=== PATIENT | male | born 1950 | race Caucasian/White ===

== ENCOUNTER 2019-01-06 13:18 | Inpatient (IN) | payer BC, MEDICARE ==
[2019-01-06] MEDS ORDERED: Heparin for STEMI(*) 5,000 UNITS/ML 1 ML VIAL IV ONE (13:29)
[2019-01-06] MEDS ORDERED: Ticagrelor* 90 MG TAB PO ONE (13:29)
--- NOTE | 2019-01-06 13:31 | ED ---
HPI Chest Pain - HPI Summary HPI Summary: A 68 y/o male brought in by ambulance with a chief complaint of thinking that he is "having a heart attack". He had intermittent CP starting last night, radiating down his left arm. Pain increased today with activity so he called hi STEMI alert called at 13:10 before EMS arrival at 13:16. EMS did not give the patient pain medication. Upon arrival he rated his pain as a 7/10 in severity. Pt was give ASA by EMS. Pt was not given nitro second to blood pressure 90 systolic. EMS states pt with some decresaed responsiveness initially, improved enroute. In the ED, pt rates pain 7/10. Denies sob. STEMI called in the field. Dr. Castillo, gaming surveillance observer, was at bedside evaluating patient at 13:20. The patient is a heavy smoker. Pt does not take any medications for eretile dysfunction. e reports taking medication for HLD and HTN. He notes being allergic to nickel. Patients medication reviewed this visit. - History of Current Complaint Chief Complaint: KCChestPain Hx Obtained From: Patient, Family/Environmental Services Tech, EMS Onset/Duration: Started Hours Ago, Still Present Timing: Constant, Lasting Hours Initial Severity: Moderate Current Severity: Moderate Pain Intensity: 7 Pain Scale Used: 0-10 Numeric Chest Pain Location: Diffuse Chest Pain Radiates: No Character: Other: - unable to describe Aggravating Factor(s): Nothing Alleviating Factor(s): Nothing Associated Signs and Symptoms: Positive: Chest Pain. Negative: Fever - Allergy/Home Medications Allergies/Adverse Reactions: Allergies Allergy/AdvReac Type Severity Reaction Status Date / Time nickel Allergy Unknown Verified 01/06/19 15:19 Reaction Details PMH/Surg Hx/FS Hx/Imm Hx Previously Healthy: Yes Endocrine/Hematology History: Denies: Hx Anticoagulant Therapy Cardiovascular History: Reports: Hx Hypercholesterolemia, Hx Hypertension Sensory History: Denies: Hx Deafness EENT History: Denies: Hx Deafness Infectious Disease History: No Infectious Disease History: Denies: Traveled Outside the [place] in Last 30 Days - Family History Known Family History: Positive: Non-Contributory - Social History Lives: With Family Smoking Status (MU): Heavy Every Day Tobacco Smoker Review of Systems Constitutional: Negative Negative: Fever Positive: Chest Pain All Other Systems Reviewed And Are Negative: Yes Physical Exam - Summary Physical Exam Summary: Vital Signs Reviewed: Yes A+Ox3, discomfort Eyes: Conjunctiva Clear, LUZ. EOM intact and full ENT: [place] TM x 2 clear, mmoist, uvula midline, no exudate, no erythema Neck: Positive: Supple Respiratory: Positive: No respiratory distress, No accessory muscle use + CTA throughout no w/r Cardiovascular: RRR nl s1, s2 no m/r CBT <2 sec abd soft + BS nt/nd no guarding, no distension Musculoskeletal Exam: CALERO without difficulty , normal tone Neurological: Positive: Alert, + sensation throughout Psychological: Positive: Normal Response To Family Skin: Positive: no rash, no ecchymosis Triage Information Reviewed: Yes Vital Signs On Initial Exam: Initial Vitals Temp Pulse Resp BP Pulse Ox 96.5 F 74 13 164/45 100 01/06/19 13:20 01/06/19 13:20 01/06/19 13:20 01/06/19 13:20 01/06/19 13:20 Diagnostics - Vital Signs Vital Signs Temp Pulse Resp BP Pulse Ox 01/06/19 13:20 96.5 F 74 13 164/45 100 - Laboratory Result Diagrams: 01/06/19 13:26 01/06/19 13:26 Lab Statement: Any lab studies that have been ordered have been reviewed, and results considered in the medical decision making process. Chest Pain Course/Dx - Course Course Of Treatment: Pt presents to with progressive C P x 24 - increased today - with with inferior wall NM. Pt given ASA SENIOR ANALYSIS SPECIALIST. Pt with BP > 150 in ED - will give nitroglycerin. Dr. Castillo at bedside - wlill give heparin and Berlinta. Pt to supervisor laboratory. escorted to bedside - updated - Diagnoses Provider Diagnoses: STEMI (ST elevation myocardial infarction) During the Visit The Following Alert/Code Occurred: STEMI - Provider Notifications Discussed Care Of Patient With: Juan Diego Castillo Time Discussed With Above Provider: 13:27 Instructed by Provider To: Admit As Inpatient - Dr. Castillo was at bedside evaluating patient at 13:20 Discharge - Sign-Out/Discharge Documenting (check all that apply): Patient Departure - Discharge Plan Condition: Critical Disposition: ADMITTED TO [facility] - Billing Disposition and Condition Condition: CRITICAL Disposition: Admitted to [facility] - Attestation Statements Document Initiated by Scribe: Yes Documenting Scribe: Minor Zafar Provider For Whom Scribe is Documenting (Include Credential): Laura Forbes MD Scribe Attestation: I, Minor Zafar, scribed for Laura Forbes MD on 01/06/19 at 1554. Scribe Documentation Reviewed: Yes Provider Attestation: The documentation as recorded by the scribe, Minor Zafar accurately reflects the service I personally performed and the decisions made by me, Laura Forbes MD Status of Scribe Document: Viewed
[2019-01-06] MEDS ORDERED: Nitroglycerin TAB 0.4 MG* 0.4 MG TAB SL PRN ×2 (13:33→15:04)
[2019-01-06] MEDS ORDERED: fentaNYL* 50 MCG/ML 2 ML VIAL (100 MCG VIAL) ONE (13:38)
[2019-01-06] MEDS ORDERED: Midazolam* 1 MG/ML 5 ML VIAL (5 MG) ONE (13:38)
[2019-01-06 13:49] LABS: ABS Basophils 0 10^3/ul (0-0.2); ABS Eosinophils 0.2 10^3/ul (0-0.6); ABS Lymphocytes 1.5 10^3/ul (1.0-4.8); ABS Monocytes 0.8 10^3/ul (0-0.8); ABS Neutrophils 6.2 10^3/ul (1.5-7.7); ABS Nucleated RBC 0 10^3/ul; Eosinophil % 1.9 %; Hematocrit 46 % (36-46); Hemoglobin 15.7 g/dL (14.0-18.0); Lymphocyte % 17.6 %; Mean Corpuscular HGB Conc 34 g/dL (31-36); Mean Corpuscular Hemoglobin 31 pg (27-31); Mean Corpuscular Volume 92 fL (80-94); Mean Platelet Volume 8.6 fL (7.4-10.4); Nucleated Red Blood Cells % 0; Platelet Count 195 10^3/uL (150-450); Red Cell Distribution Width 13 % (10.5-15); White Blood Count 8.7 10^3/uL (3.5-10.8)
[2019-01-06 13:56] LABS: Activated Partial Thrombo Time 27.4 seconds (26.0-36.3); INR 1.06 (0.77-1.02)
[2019-01-06 14:07] LABS: ALT 22 U/L (7-52); AST 22 U/L (13-39); Albumin 4.4 g/dL (3.2-5.2); Albumin/Globulin Ratio 2.1 (1-3); Alkaline Phosphatase 68 U/L (34-104); Anion Gap 6 mmol/L (2-11); BUN/Creatinine Ratio 18.1 (8-20); Blood Urea Nitrogen 19 mg/dL (6-24); CO2 Carbon Dioxide 33 mmol/L (22-32); Calcium 9.2 mg/dL (8.6-10.3); Chloride 100 mmol/L (101-111); Creatine Kinase 116 U/L (10-223); EGFR African American 85.5 (>60); EGFR Non-African American 70.7 (>60); Globulin 2.1 g/dL (2-4); Glucose 92 mg/dL (70-100); LDL Cholesterol Direct 105 mg/dL; Potassium 3.4 mmol/L (3.5-5.0); Sodium 139 mmol/L (135-145); Total Protein 6.5 g/dL (6.4-8.9)
[2019-01-06] MEDS ORDERED: nitroGLYCERIN DRIP* 0 MCG/0 ML BTL ONE (14:09)
[2019-01-06 14:15] LABS: Troponin I 0.24 ng/mL (<0.04)
[2019-01-06] MEDS ORDERED: KCL 10 MEQ/50 ML IVPREMIX* 10 MEQ/50 ML BAG ONE (14:15)
[2019-01-06] MEDS ORDERED: Atropine SYRINGE* 0.1 MG/ML 10 ML SYRINGE (1 MG) ONE (14:42)
[2019-01-06] MEDS ORDERED: Ondansetron INJ* 2 MG/ML VIAL IV PRN (15:04)
[2019-01-06] MEDS ORDERED: Acetaminophen TAB* 325 MG PO PRN (15:04)
[2019-01-06] MEDS ORDERED: NS 0.9% 1000 ML** 1,000 ML IV SCH (15:15)
[2019-01-06 15:47] LABS: CKMB ng/mL 256.3 ng/mL (0.6-6.3); Troponin I 14.39 ng/mL (<0.04)
[2019-01-06 15:48] LABS: Creatine Kinase 1707 U/L (10-223)
[2019-01-06 15:49] LABS: Cholesterol 156 mg/dL; HDL Cholesterol 36.5 mg/dL; LDL Cholesterol 88 mg/dL; Triglycerides 160 mg/dL
[2019-01-06] MEDS: Metoprolol Tartrate TAB* 25 MG PO SCH ×2 (16:40→23:57)
[2019-01-06] MEDS: Nicotine PATCH 21 MG/24 HR* PATCH TRANSDERM SCH (16:58)
--- NOTE | 2019-01-06 19:05 | HP ---
CC: Mary Ashford PA-C * HISTORY AND PHYSICAL: DATE OF ADMISSION: 01/06/19 PRIMARY: Mary Ashford PA-C at [facility], [address] [place] [address], [address] [place] [address]. HISTORY OF PRESENT ILLNESS: A 68-year-old male visiting from [place] presenting to the ER with in the field acute inferior ST elevation infarct. He was brought to the manager laboratory. In retrospect, he has had low energy for a number of months. He has a history of what describes as heartburn since this winter. Two days ago, he had that same heartburn sensation lasting 2 to 3 hours before it resolved. Yesterday, he felt well, today at around 10:30 in the morning, he had a recurrence of severe heartburn, EMS was called, in the field EKG at 12:49 demonstrated sinus rhythm with a first-degree A-V block, and acute inferior wall ST elevation infarct with ST elevation in II, III, aVF, with reciprocal ST depression in I, aVL, V1 through V4. In the emergency room, he received 2 sublingual nitroglycerin, IV heparin bolus, as well as Brilinta 180 mg p.o. loading dose. Presenting blood pressure was high at 164/45 with a heart rate in the 70s. His chest pain improved, but did not resolve with sublingual nitro. He denies any history of heart failure symptoms, palpitations, or syncope. He is a pack and a half per day smoker, he has tried stopping several times in the past. He had a bad experience with Chantix with mood issues, he has tried nicotine patches in the past, but according to his , he continues to smoking well wearing the patches. He states he "has no will power." He also has a NICKEL allergy, manifest as a cutaneous rash with exposure to metals. I reviewed with them that stents do have trace nickel, but that there are no reported cases of adverse events with stenting in pts with Ni allergy, and that benefit of treating STEMI outweighs any theoretical risk. We do have an office record from [facility] from 01/20/18, which details his past medical history, his medications, etc. Of note, he has had elevated blood sugars with upper limit of normal hemoglobin A1c consistent with prediabetes. He also takes diclofenac as well as Aleve for musculoskeletal discomfort. His lipid profile from that visit is listed as cholesterol 156, triglycerides 113, LDL 95, HDL 38, VLDL 23, on Zocor 20. Per history, he had intolerable leg cramping with Lipitor. To their knowledge, he has never been on Crestor. PAST MEDICAL HISTORY: 1. Obstructive sleep apnea for which he is not using CPAP by choice. 2. Hypertension, medically managed. 3. Chronic hypomagnesemia and hypokalemia, likely related to his hydrochlorothiazide. 4. Hyperlipidemia. 5. GERD, treated with Zantac 150 one to two times per day. MEDICATIONS: Prehospital medications: 1. Aleve p.r.n. 2. Lofibra 54 mg daily. 3. Micro-K 10 mEq ER 2 a day. 4. Hydrochlorothiazide 25 mg daily. 5. Prinivil 5 mg daily. 6. Zocor 20 mg daily. 7. Diclofenac p.r.n. 8. Zantac as above. ALLERGIES: He is allergic to NICKEL. SOCIAL HISTORY: He is . He is a one and half pack per day smoker, has had difficulty quitting. FAMILY HISTORY: Negative for premature coronary artery disease. REVIEW OF SYSTEMS: General: No weight loss. No fever. He is fairly sedentary. UNIFORM MAKER: No history of TIA or CVA. GI: No peptic ulcer disease or bleeding. Circulatory: No claudication. Remainder all negative. PHYSICAL EXAMINATION VITAL SIGNS: ER BP 164/45, heart rate 74. He was in moderate distress with a chest pain. He was not profusely diaphoretic. HEENT: Normal without xanthelasma, scleral injection, or jaundice. EOMs normal , cranial nerves intact. Tongue midline. NECK: JVP and carotids normal. No bruits. No thyromegaly. Neck supple. LUNGS: Clear to percussion, auscultation. CARDIAC: [place] and RV not palpable, normal heart sounds, regular rhythm, no gallop, murmur, or rub. ABDOMEN: Soft, nontender, aorta and liver not palpable, no bruits. Femoral pulses 2+. No bruits. EXTREMITIES: Radial pulses 2+. Pedal pulses 2+. No cyanosis, clubbing, or edema. SKIN: Warm and perfused. DIAGNOSTIC STUDIES/LAB DATA: EKG at [address] inferior wall ST elevation infarct with now Q waves in II, III and aVF as well as the reciprocal ST depression as before, and again with first-degree A-V block, SD 0.36. His CBC is normal, coags are normal, chemistry panel notable for low potassium of 3.4, CO2 of 33 with chloride 100. His first troponin was 0.24. LFTs normal , cholesterol 156 with triglycerides 160, LDL 88, directly measured LDL was 105 , HDL 36.5. IMPRESSION: 1. Acute inferior wall ST elevation infarct. He underwent emergent revascularization. We will discuss with him secondary risk factor modification measures. 2. Hypertension. Per history, he has been fairly well controlled, however, he has chronic hypokalemia and hypomagnesemia in spite of supplementation, my suggestion to family is to stop his hydrochlorothiazide and increase his CELINA inhibitor, particularly since we are adding a beta-kae for post infarct cardioprotection. In the unlikely event that he has hypokalemia and hypomagnesemia off diuretics, this would have to be evaluated independently. 3. Hyperlipidemia. He is on Zocor 20 with an LDL not at target. I will recommend switching him to Crestor for a trial. 4. Obstructive sleep apnea, apparently has declined treatment. 5. Prediabetes. We will review secondary prevention measures including weight loss and exercise, etc. [id number]/[facility] #: [id number] [facility]
[2019-01-06] MEDS: Potassium Chlor TAB* 10 MEQ TAB.ER PO SCH (20:38)
[2019-01-06] MEDS: Ticagrelor* 90 MG TAB PO SCH (20:39)
[2019-01-06] MEDS: Nicotine Patch Removal NOTE PATCH OFF SCH (20:41)
[2019-01-06 21:24] LABS: CKMB ng/mL > 304.0 ng/mL (0.6-6.3); Troponin I > 79.00 ng/mL (<0.04)
[2019-01-06 21:43] LABS: Creatine Kinase 3073 U/L (10-223)
[2019-01-07 04:24] LABS: Creatine Kinase 1939 U/L (10-223)
[2019-01-07 04:41] LABS: CKMB ng/mL > 304.0 ng/mL (0.6-6.3)
[2019-01-07 04:43] LABS: Troponin I > 74.00 ng/mL (<0.04)
[2019-01-07 05:57] LABS: Albumin 3.9 g/dL (3.2-5.2); Albumin/Globulin Ratio 1.9 (1-3); BUN/Creatinine Ratio 23.8 (8-20); Calcium 8.9 mg/dL (8.6-10.3); EGFR African American 110.6 (>60); EGFR Non-African American 91.4 (>60); Globulin 2.1 g/dL (2-4); Potassium 3.6 mmol/L (3.5-5.0); Total Bilirubin 0.6 mg/dL (0.2-1.0)
[2019-01-07] MEDS: Potassium Chlor TAB* 10 MEQ TAB.ER PO SCH ×2 (09:10→20:25)
[2019-01-07] MEDS: Aspirin 81 mg CHEW TAB* 81 MG TAB.CHEW PO SCH (09:10)
[2019-01-07] MEDS: Lisinopril TAB* 5 MG PO SCH (09:10)
[2019-01-07] MEDS: Metoprolol Tartrate TAB* 25 MG PO SCH (09:10)
[2019-01-07] MEDS: Ticagrelor* 90 MG TAB PO SCH ×2 (09:10→20:25)
[2019-01-07] MEDS: Nicotine PATCH 21 MG/24 HR* PATCH TRANSDERM SCH (09:11)
[2019-01-07] MEDS ORDERED: Potassium Chlor TAB* 20 MEQ TAB.ER PO ONE (09:26)
--- NOTE | 2019-01-07 09:52 | PN ---
<AnnelNiesha - Last Filed: 01/07/19 10:04> Subjective Date of Service: 01/07/19 - s/p inferior STEMI, JHONNY/RCA. Interval History: No events last night. Patient resting in bed offers no complaints. RN stated he has been having venticular ectopy with 2 episodes of NSVT this morning while resting and he has not been symptomatic. No denies chest angela, left arm pain, sob , dizziness, palpitations. Medications Active Medications: Acetaminophen (Tylenol Tab*) 650 mg PO Q4H PRN PRN Reason: HEADACHE/PAIN Aspirin (Aspirin 81 Mg Chew Tab*) 81 mg PO DAILY [facility] Last Admin: 01/07/19 09:10 Dose: 81 mg Fenofibrate (Tricor) 54 mg PO DAILY [facility] Last Admin: 01/07/19 09:11 Dose: 54 mg Lisinopril (Prinivil Tab*) 5 mg PO DAILY [facility] Last Admin: 01/07/19 09:10 Dose: 5 mg Metoprolol Tartrate (Lopressor Tab*) 25 mg PO Q8H [facility] Last Admin: 01/07/19 09:10 Dose: 25 mg Nicotine (Nicotine Patch 21 Mg/24 Hr*) 1 patch TRANSDERM DAILY [facility] Last Admin: 01/07/19 09:11 Dose: 1 patch Nitroglycerin (Nitroglycerin Tab 0.4 Mg*) 0.4 mg SL Q5M PRN PRN Reason: ANGINA Ondansetron HCl (Zofran Inj*) 4 mg IV Q4H PRN PRN Reason: NAUSEA Pharmacy Profile Note (Nicotine Patch Removal Note*) 1 note PATCH OFF 2100 [facility] Last Admin: 01/06/19 20:41 Dose: 1 note Potassium Chloride (Klor Con Er Tab*) 10 meq PO BID [facility] Last Admin: 01/07/19 09:10 Dose: 10 meq Ticagrelor (Brilinta*) 90 mg PO BID [facility] Last Admin: 01/07/19 09:10 Dose: 90 mg Objective Vital Signs: Temp Pulse Resp BP Pulse Ox 98.4 F 64 17 122/83 92 01/07/19 08:00 01/07/19 09:01 01/07/19 09:01 01/07/19 05:48 01/07/19 09:01 Oxygen Devices in Use Now: None Appearance: Lying in bed, A+O x3, cooperative with exam. Ears/Nose/Mouth/Throat: NL Teeth, Lips, Gums, Mucous Membranes Moist Neck: NL Appearance and Movements; NL JVP Respiratory: Symmetrical Chest Expansion and Respiratory Effort, Clear to Auscultation Cardiovascular: NL Sounds; No Murmurs; No JVD, No Edema, - - right radial access site is intact, no hematoma, strong bounding pulse, non tender to palpation. Extremities: No Edema Skin: No Rash or Ulcers Neurological: Alert and Oriented x 3 Lines/Tubes/Other Access: Clean, Dry and Intact Peripheral IV Laboratory Results: 01/06/19 13:26 01/07/19 05:14 INR (Anticoag Therapy) 1.06 (0.77-1.02) H 01/06/19 13:26 APTT 28.5 seconds (26.0-36.3) 01/07/19 05:14 Total Bilirubin 0.60 mg/dL (0.2-1.0) 01/07/19 05:14 AST 235 U/L (13-39) H 01/07/19 05:14 ALT 58 U/L (7-52) H 01/07/19 05:14 Alkaline Phosphatase 60 U/L (34-104) 01/07/19 05:14 CK-MB (CK-2) > 304.0 ng/mL (0.6-6.3) H 01/07/19 03:08 B-Natriuretic Peptide 31 pg/mL (<=100) 01/06/19 13:26 Total Protein 6.0 g/dL (6.4-8.9) L 01/07/19 05:14 Albumin 3.9 g/dL (3.2-5.2) 01/07/19 05:14 Globulin 2.1 g/dL (2-4) 01/07/19 05:14 Albumin/Globulin Ratio 1.9 (1-3) 01/07/19 05:14 Triglycerides 160 mg/dL 01/06/19 13:26 Cholesterol 156 mg/dL 01/06/19 13:26 LDL Cholesterol 88 mg/dL 01/06/19 13:26 HDL Cholesterol 36.5 mg/dL 01/06/19 13:26 01/06/19 01/06/19 01/06/19 13:26 15:20 20:54 Troponin I 0.24 H* 14.39 H* > 79.00 H* 01/07/19 03:08 Troponin I > 74.00 H* Laboratory Results - last 24 hr 01/06/19 01/06/19 01/06/19 13:26 13:26 13:26 WBC 8.7 RBC 5.00 Hgb 15.7 Hct 46 MCV 92 MCH 31 MCHC 34 RDW 13 Plt Count 195 MPV 8.6 Neut % (Auto) 71.3 Lymph % (Auto) 17.6 [place] % (Auto) 8.8 Eos % (Auto) 1.9 Baso % (Auto) 0.4 Absolute Neuts (auto) 6.2 Absolute Lymphs (auto) 1.5 Absolute Monos (auto) 0.8 Absolute Eos (auto) 0.2 Absolute Basos (auto) 0 Absolute Nucleated RBC 0 Nucleated RBC % 0 INR (Anticoag Therapy) 1.06 H APTT 27.4 POC Activ Clotting Time Sodium 139 Potassium 3.4 L Chloride 100 L Carbon Dioxide 33 H Anion Gap 6 BUN 19 Creatinine 1.05 Est GFR ( Amer) 85.5 Est GFR (Non-Af Amer) 70.7 BUN/Creatinine Ratio 18.1 Glucose 92 Hemoglobin A1c Lactic Acid Calcium 9.2 Total Bilirubin 0.50 AST 22 ALT 22 Alkaline Phosphatase 68 Total Creatine Kinase 116 CK-MB (CK-2) 5.0 Troponin I 0.24 H* B-Natriuretic Peptide Total Protein 6.5 Albumin 4.4 Globulin 2.1 Albumin/Globulin Ratio 2.1 Triglycerides 160 Cholesterol 156 LDL Cholesterol 88 LDL Cholesterol Direct 105 HDL Cholesterol 36.5 01/06/19 01/06/19 01/06/19 13:26 13:26 13:26 WBC RBC Hgb Hct MCV MCH MCHC RDW Plt Count MPV Neut % (Auto) Lymph % (Auto) [place] % (Auto) Eos % (Auto) Baso % (Auto) Absolute Neuts (auto) Absolute Lymphs (auto) Absolute Monos (auto) Absolute Eos (auto) Absolute Basos (auto) Absolute Nucleated RBC Nucleated RBC % INR (Anticoag Therapy) APTT POC Activ Clotting Time Sodium Potassium Chloride Carbon Dioxide Anion Gap BUN Creatinine Est GFR ( Amer) Est GFR (Non-Af Amer) BUN/Creatinine Ratio Glucose Hemoglobin A1c 5.7 H Lactic Acid 1.3 Calcium Total Bilirubin AST ALT Alkaline Phosphatase Total Creatine Kinase CK-MB (CK-2) Troponin I B-Natriuretic Peptide 31 Total Protein Albumin Globulin Albumin/Globulin Ratio Triglycerides Cholesterol LDL Cholesterol LDL Cholesterol Direct HDL Cholesterol 01/06/19 01/06/19 01/06/19 13:53 14:09 14:19 WBC RBC Hgb Hct MCV MCH MCHC RDW Plt Count MPV Neut % (Auto) Lymph % (Auto) [place] % (Auto) Eos % (Auto) Baso % (Auto) Absolute Neuts (auto) Absolute Lymphs (auto) Absolute Monos (auto) Absolute Eos (auto) Absolute Basos (auto) Absolute Nucleated RBC Nucleated RBC % INR (Anticoag Therapy) APTT POC Activ Clotting Time 225 217 192 Sodium Potassium Chloride Carbon Dioxide Anion Gap BUN Creatinine Est GFR ( Amer) Est GFR (Non-Af Amer) BUN/Creatinine Ratio Glucose Hemoglobin A1c Lactic Acid Calcium Total Bilirubin AST ALT Alkaline Phosphatase Total Creatine Kinase CK-MB (CK-2) Troponin I B-Natriuretic Peptide Total Protein Albumin Globulin Albumin/Globulin Ratio Triglycerides Cholesterol LDL Cholesterol LDL Cholesterol Direct HDL Cholesterol 01/06/19 01/06/19 01/07/19 15:20 20:54 03:08 WBC RBC Hgb Hct MCV MCH MCHC RDW Plt Count MPV Neut % (Auto) Lymph % (Auto) [place] % (Auto) Eos % (Auto) Baso % (Auto) Absolute Neuts (auto) Absolute Lymphs (auto) Absolute Monos (auto) Absolute Eos (auto) Absolute Basos (auto) Absolute Nucleated RBC Nucleated RBC % INR (Anticoag Therapy) APTT POC Activ Clotting Time Sodium Potassium Chloride Carbon Dioxide Anion Gap BUN Creatinine Est GFR ( Amer) Est GFR (Non-Af Amer) BUN/Creatinine Ratio Glucose Hemoglobin A1c Lactic Acid Calcium Total Bilirubin AST ALT Alkaline Phosphatase Total Creatine Kinase 1707 H 3073 H 1939 H CK-MB (CK-2) 256.3 H > 304.0 H > 304.0 H Troponin I 14.39 H* > 79.00 H* > 74.00 H* B-Natriuretic Peptide Total Protein Albumin Globulin Albumin/Globulin Ratio Triglycerides Cholesterol LDL Cholesterol LDL Cholesterol Direct HDL Cholesterol 01/07/19 01/07/19 05:14 05:14 WBC RBC Hgb Hct MCV MCH MCHC RDW Plt Count MPV Neut % (Auto) Lymph % (Auto) [place] % (Auto) Eos % (Auto) Baso % (Auto) Absolute Neuts (auto) Absolute Lymphs (auto) Absolute Monos (auto) Absolute Eos (auto) Absolute Basos (auto) Absolute Nucleated RBC Nucleated RBC % INR (Anticoag Therapy) APTT 28.5 POC Activ Clotting Time Sodium 141 Potassium 3.6 Chloride 107 Carbon Dioxide 28 Anion Gap 6 BUN 20 Creatinine 0.84 Est GFR ( Amer) 110.6 Est GFR (Non-Af Amer) 91.4 BUN/Creatinine Ratio 23.8 H Glucose 112 H Hemoglobin A1c Lactic Acid Calcium 8.9 Total Bilirubin 0.60 AST 235 H ALT 58 H Alkaline Phosphatase 60 Total Creatine Kinase CK-MB (CK-2) Troponin I B-Natriuretic Peptide Total Protein 6.0 L Albumin 3.9 Globulin 2.1 Albumin/Globulin Ratio 1.9 Triglycerides Cholesterol LDL Cholesterol LDL Cholesterol Direct HDL Cholesterol Diagnostic Imaging: ECHO pending. [facility] 01/06/2019 please refer to report in paper chart. EKG Data: EKG 01/07/2019; Sinus bradycardia rate 59 with first degree AVB and inferiror Q waves. Telemetry reviewed. Sinus bradycardia rate 50-60's with frequent ventricular ectopy and NSVT. 9 beat count ( monomorphic) at 0932 Assessment/Plan #1 Inferior STEMI s/p JHONNY to mid RCA 01/06/2019. On ASA 81/day, Brilinta 90mg PO BID and high intensity statin therapy. No recurrent symptoms since PCI. He has known residual 60% proximal LAD, Diag 1 80%, PDA 80%, PL 60%. LVEF 55% on LV gram. Troponin peaked at > 79 on 01/06/2019. Given ventricular ectopy I would like to start low dose Bblocker but cautiously given relative bradycardia. He' ll need eventual stress test in outpatient follow up #2 Ventricular ectopy; Plan is to staup titrate Lopressor. Will replace K+. He is asympotmatic. Will check echo. #3 h/o HTN; BP controlled on current regimen. #4 h/o HLD. Goal LDL < 70. LDL this admit. 88. On high intensity statin therapy. #5 Disposition pending course. Patient full code. <Juan Diego Castillo T - Last Filed: 01/07/19 12:14> Medications Active Medications: Acetaminophen (Tylenol Tab*) 650 mg PO Q4H PRN PRN Reason: HEADACHE/PAIN Aspirin (Aspirin 81 Mg Chew Tab*) 81 mg PO DAILY [facility] Last Admin: 01/07/19 09:10 Dose: 81 mg Fenofibrate (Tricor) 54 mg PO DAILY [facility] Last Admin: 01/07/19 09:11 Dose: 54 mg Lisinopril (Prinivil Tab*) 5 mg PO DAILY [facility] Last Admin: 01/07/19 09:10 Dose: 5 mg Metoprolol Tartrate (Lopressor Tab*) 50 mg PO Q12HR [facility] Nicotine (Nicotine Patch 21 Mg/24 Hr*) 1 patch TRANSDERM DAILY [facility] Last Admin: 01/07/19 09:11 Dose: 1 patch Nitroglycerin (Nitroglycerin Tab 0.4 Mg*) 0.4 mg SL Q5M PRN PRN Reason: ANGINA Ondansetron HCl (Zofran Inj*) 4 mg IV Q4H PRN PRN Reason: NAUSEA Pharmacy Profile Note (Nicotine Patch Removal Note*) 1 note PATCH OFF 2100 [facility] Last Admin: 01/06/19 20:41 Dose: 1 note Potassium Chloride (Klor Con Er Tab*) 10 meq PO BID [facility] Last Admin: 01/07/19 09:10 Dose: 10 meq Ticagrelor (Brilinta*) 90 mg PO BID [facility] Last Admin: 01/07/19 09:10 Dose: 90 mg Objective Vital Signs: Temp Pulse Resp BP Pulse Ox 98.4 F 64 17 122/83 92 01/07/19 08:00 01/07/19 09:01 01/07/19 09:01 01/07/19 05:48 01/07/19 09:01 Laboratory Results: 01/06/19 13:26 01/07/19 05:14 INR (Anticoag Therapy) 1.06 (0.77-1.02) H 01/06/19 13:26 APTT 28.5 seconds (26.0-36.3) 01/07/19 05:14 Total Bilirubin 0.60 mg/dL (0.2-1.0) 01/07/19 05:14 AST 235 U/L (13-39) H 01/07/19 05:14 ALT 58 U/L (7-52) H 01/07/19 05:14 Alkaline Phosphatase 60 U/L (34-104) 01/07/19 05:14 CK-MB (CK-2) > 304.0 ng/mL (0.6-6.3) H 01/07/19 03:08 B-Natriuretic Peptide 31 pg/mL (<=100) 01/06/19 13:26 Total Protein 6.0 g/dL (6.4-8.9) L 01/07/19 05:14 Albumin 3.9 g/dL (3.2-5.2) 01/07/19 05:14 Globulin 2.1 g/dL (2-4) 01/07/19 05:14 Albumin/Globulin Ratio 1.9 (1-3) 01/07/19 05:14 Triglycerides 160 mg/dL 01/06/19 13:26 Cholesterol 156 mg/dL 01/06/19 13:26 LDL Cholesterol 88 mg/dL 01/06/19 13:26 HDL Cholesterol 36.5 mg/dL 01/06/19 13:26 01/06/19 01/06/19 01/06/19 13:26 15:20 20:54 Troponin I 0.24 H* 14.39 H* > 79.00 H* 01/07/19 03:08 Troponin I > 74.00 H* Assessment/Plan 2 episodes of AIVR this Am. To tele in Pm if no further NSVT and tolerates increase in beta kae. R RA patent by jon Rubio.
[2019-01-07] MEDS ORDERED: Metoprolol Tartrate TAB* 25 MG PO ONE (10:10)
[2019-01-07 12:33] LABS: Magnesium 1.9 mg/dL (1.9-2.7)
--- NOTE | 2019-01-07 15:05 | ECHO ---
Patient: ROCIO MENON [facility] Rec#: [id number] : 1950 Date: 01/07/2019 Age: 68y Height: 183 cm / 72.0 in Weight: 91 kg / 200.6 lbs Sex: M BSA: 2.13 Room#: ICU 8 Admit Date#: 01/06/2019 Type: Inpatient Referring: FRANCO HIGH Reading: Kirk Parekh DO Business Objects Architect: Carol BolañosRDCS,RDMS Transthoracic Echocardiogram Indication: SD BP: 122/83 HR: 72 Rhythm: NSR Findings History: S/P STEMI and PCI. HTN, HLD, KADIE, smoker. Technical Comments: The study quality is fair. Left Ventricle: The left ventricular chamber size is normal. Mild concentric left ventricular hypertrophy is observed. Left ventricular systolic function is at the lower limits of normal. The estimated ejection fraction is 50-55%. There is no consistent Doppler evidence of clinically significant diastolic dysfunction. The basal inferolateral, basal inferior, mid inferolateral, mid inferior, and apical inferior wall segments are hypokinetic (score 2). Overall wallmotion score index is 2.00 Left Atrium: The left atrial chamber size is normal. Right Ventricle: The right ventricular chamber size and systolic function are within normal limits. The right ventricular global systolic function is mildly reduced. Right Atrium: The right atrial cavity size is normal. Aortic Valve: The aortic valve is trileaflet. Systolic excursion of the aortic valve is normal. There is no evidence of aortic regurgitation. There is no evidence of aortic stenosis. Mitral Valve: The mitral valve leaflets appear normal. There is a trace of mitral regurgitation. There is no evidence of mitral stenosis. Tricuspid Valve: The tricuspid valve leaflets are normal. There is no evidence of tricuspid valve regurgitation. Unable to estimate the right ventricular systolic pressure. Pulmonic Valve: The pulmonic valve appears normal. There is no evidence of pulmonic regurgitation. Pericardium: There is no significant pericardial effusion. Aorta: The aortic root appears normal. There is no dilatation of the aortic arch. Pulmonary Artery: The main pulmonary artery is not well visualized. Venous: The inferior vena cava is dilated. There is a greater than 50% respiratory change in the inferior vena cava dimension. Conclusions The left ventricular chamber size is normal. Mild concentric left ventricular hypertrophy is observed. Left ventricular systolic function is at the lower limits of normal. The estimated ejection fraction is 50-55% with inferior/inferolateral wall hypokinesis The left atrial chamber size is normal. The right ventricular chamber size and systolic function are within normal limits. The right ventricular global systolic function is mildly reduced. No significant valvular abnormalities noted None prior for comparison at time of interpretation Measurements Name Value Normal Range RVIDd (AP) 2D 2.5 cm (0.9 - 2.6) RVDdMajor (2D) 3.6 cm (2.2 - 4.4) RAd ISD 4CH 4.5 cm (3.4 - 4.9) RA (A4C)W 4.1 cm (2.9 - 4.6) IVSd (2D) 1.3 cm (0.6 - 1) LVPWd (2D) 1.1 cm (0.6 - 1) LVIDd (2D) 4.5 cm (3.6 - 5.4) LVIDs (2D) 3.6 cm - LV FS 21 % - Aortic Annulus 2 cm (1.4 - 2.6) Ao root diameter (2D) 3 cm (2.1 - 3.5) Ascending Ao 3.1 cm (2.1 - 3.4) Aortic arch 2.7 cm (1.8 - 3.4) LA dimension (AP) 2D 4.4 cm (2.3 - 3.8) LAd ISD 4CH 5.8 cm (2.9 - 5.3) LA ISD 4CH W 4.3 cm (2.5 - 4.5) Name Value Normal Range LA ESV BP (A/L) index 28 ml/m2 - Name Value Normal Range MV E-wave Vmax 0.7 m/sec - MV deceleration time 132 msec - MV A-wave Vmax 0.5 m/sec - MV E:A ratio 1.4 ratio - LV septal e' Vmax 0.06 m/sec - LV lateral e' Vmax 0.06 m/sec - LV E:e' septal ratio 11 ratio - LV E:e' lateral ratio 11 ratio - Name Value Normal Range AV Vmax 1 m/sec - AV VTI 20 cm - AV peak gradient 4 mmHg - AV mean gradient 2 mmHg - LVOT Vmax 0.8 m/sec - LVOT VTI 18 cm - LVOT peak gradient 2.6 mmHg - LVOT mean gradient 1 mmHg - LEI Vmax 0.5 m/sec - Name Value Normal Range RAP 8 mmHg - IVC diameter 2.2 cm - Name Value Normal Range PV Vmax 0.5 m/sec - PV peak gradient 1 mmHg - Wallmotion BAS Not Seen BA Not Seen BAL Not Seen OLGA Hypokinetic BI Hypokinetic BIS Not Seen MAS Not Seen MA Not Seen MAL Not Seen MIL Hypokinetic SD Hypokinetic MIS Not Seen Not Seen AA Not Seen AL Not Seen AI Hypokinetic APEX Not Seen
[2019-01-07] MEDS: Ascorbic Acid TAB* 500 MG PO SCH (16:08)
[2019-01-07] MEDS: Metoprolol Tartrate TAB* 50 mg PO SCH (20:24)
[2019-01-07] MEDS: Nicotine Patch Removal NOTE PATCH OFF SCH (20:28)
--- NOTE | 2019-01-07 20:58 | CATH ---
CC: Mary Ashford PA-C, [facility], [address] [place] [address], [address], [place], [place] [address] * STENT REPORT: DATE OF PROCEDURE: 01/06/19 - ROOM #443 PRIMARY CARE PHYSICIAN: Mary Ashford PA-C PROCEDURES: 1. Right radial artery access. 2. Left heart catheterization, left ventriculography. 3. Stent placement, RCA 3.0 x 20 mm Synergy drug-eluting stent, postdilated with 3.5 x 20 NC. HISTORY: A 68-year-old smoker with hypertension, hyperlipidemia and prediabetes , presenting with an acute inferior wall ST-elevation infarct in the field. Confirmed on EKG in the ER. He underwent catheterization. PROCEDURE ACCESS: Right radial artery sheath 6F slender. MEDICATIONS: 1. Subcu lidocaine. 2. IV Versed. 3. IV fentanyl. 4. Radial cocktail with nitroglycerin 300 mcg, verapamil 3 mg. 5. Heparin 10,000 units IV. 6. Brilinta 180 mg p.o. DIAGNOSTIC CATHETERS: 5F TIG4, 5F SUKUMAR, 5F pigtail. GUIDING CATHETER: RCA 6FR4, wire 14 BMW used to deploy a 3 x 20 Synergy drug- eluting stent in the mid RCA, as it was undersized, it was then postdilated with a 3.5 x 20 NC balloon 20 atmospheres 75 seconds. Of note, in spite of additional doses of heparin for a total of 10,000 units, his ACT fell, probably due to a technical error. Post revascularization, LV gram was performed. HEMODYNAMICS: Initial AO 137/67. Post revascularization, LV 100/17-27, no aortic valve gradient on pullback. ANGIOGRAPHY: Left main. The left main is large, long, has no stenosis. LAD. The LAD is moderate to large, extends to the apex, has a very small first diagonal branch which has proximal moderate stenosis and then is occluded, the tip of the diagonal fills by [id number] collaterals, is too small for revascularization. The LAD continuation after the diagonal has an intermediate stenosis of approximately 15 mm length. Visually estimated stenosis is around 50% to 60%. This may or may not be hemodynamically significant. Mid LAD has systolic bridging, LAD ends past the apex. Circumflex. The circumflex is not dominant, moderate with a large ramus branch which has luminal irregularity but no significant stenosis, the AV groove continuation supplies a very small marginal which fills relatively slowly, it is probably diffusely severely diseased, is too small for revascularization. AV groove circumflex ends with a very small posterolateral branch. RCA. The RCA is large, dominant, with proximal nonobstructive stenosis, in the mid portion it is occluded with distal MICHAEL 0 flow. After reestablishment of antegrade flow, there is a high-grade residual stenosis. After stent placement and high pressure postdilatation, there is no significant residual stenosis, distal flow is MICHAEL 3. The PDA which is moderate has proximal 75% stenosis, which is relatively short. Terminal moderate-sized posterolateral has an eccentric 60% stenosis. It is short. LV gram: There is very mild localized distal inferior hypokinesis, estimated LVEF 55%. The inferior base is hypokinetic. CONCLUSION: 1. Two-vessel coronary artery disease with intermediate stenoses in the RPDA, RPL, and proximal LAD with diagonal occlusion. Culprit RCA occlusion, excellent angiographic results with drug-eluting stent placement in RCA. 2. Normal LVEF with mild regional wall motion abnormality. 3. Elevated LVEDP consistent with diastolic dysfunction. 4. Successful right radial artery access. 5. He will need outpatient evaluation with stress imaging for his intermediate stenoses during convalescence. [id number]/[facility] #: [id number] INGRIS
[2019-01-07 22:56] LABS: Creatine Kinase 583 U/L (10-223)
[2019-01-07 23:00] LABS: Troponin I 33.96 ng/mL (<0.04)
[2019-01-07 23:02] LABS: CKMB ng/mL 56.4 ng/mL (0.6-6.3)
[2019-01-08 06:06] LABS: Calcium 9.1 mg/dL (8.6-10.3); EGFR African American 113.7 (>60); Potassium 3.6 mmol/L (3.5-5.0)
[2019-01-08] MEDS: Potassium Chlor TAB* 10 MEQ TAB.ER PO SCH (08:17)
[2019-01-08] MEDS: Metoprolol Tartrate TAB* 50 mg PO SCH ×2 (08:17→20:55)
[2019-01-08] MEDS: Aspirin 81 mg CHEW TAB* 81 MG TAB.CHEW PO SCH (08:17)
[2019-01-08] MEDS: Ticagrelor* 90 MG TAB PO SCH ×2 (08:17→20:56)
[2019-01-08] MEDS: Lisinopril TAB* 5 MG PO SCH (08:17)
[2019-01-08] MEDS: Ascorbic Acid TAB* 500 MG PO SCH (08:18)
[2019-01-08] MEDS: Nicotine PATCH 21 MG/24 HR* PATCH TRANSDERM SCH (08:18)
--- NOTE | 2019-01-08 09:35 | PN ---
<Niesha Up - Last Filed: 01/08/19 09:30> Subjective Date of Service: 01/08/19 - s/p Inferior STEMI 01/06/2019 Interval History: No events last night. Patient resting in bed offers no complaints although he is anxious for discharge due to desire to smoke. He denies chest pain, sob, arnold , palpitations, sensation of heart racing, dizziness. He had NSVT at 0100 last night and has been having occasional VPCs not symptomatic. Medications Active Medications: Acetaminophen (Tylenol Tab*) 650 mg PO Q4H PRN PRN Reason: HEADACHE/PAIN Ascorbic Acid (Vitamin C Tab*) 1,000 mg PO DAILY [facility] Last Admin: 01/08/19 08:18 Dose: 1,000 mg Aspirin (Aspirin 81 Mg Chew Tab*) 81 mg PO DAILY [facility] Last Admin: 01/08/19 08:17 Dose: 81 mg Fenofibrate (Tricor) 54 mg PO DAILY [facility] Last Admin: 01/07/19 09:11 Dose: 54 mg Lisinopril (Prinivil Tab*) 5 mg PO DAILY [facility] Last Admin: 01/08/19 08:17 Dose: 5 mg Metoprolol Tartrate (Lopressor Tab*) 50 mg PO Q12HR [facility] Last Admin: 01/08/19 08:17 Dose: 50 mg Nicotine (Nicotine Patch 21 Mg/24 Hr*) 1 patch TRANSDERM DAILY [facility] Last Admin: 01/08/19 08:18 Dose: 1 patch Nitroglycerin (Nitroglycerin Tab 0.4 Mg*) 0.4 mg SL Q5M PRN PRN Reason: ANGINA Pharmacy Profile Note (Nicotine Patch Removal Note*) 1 note PATCH OFF 2100 [facility] Last Admin: 01/07/19 20:28 Dose: 1 note Potassium Chloride (Klor Con Er Tab*) 40 meq PO DAILY [facility] Ticagrelor (Brilinta*) 90 mg PO BID [facility] Last Admin: 01/08/19 08:17 Dose: 90 mg Objective Vital Signs: Temp Pulse Resp BP Pulse Ox 98.0 F 63 16 110/63 95 01/08/19 07:27 01/08/19 07:27 01/08/19 07:27 01/08/19 07:27 01/08/19 07:27 Oxygen Devices in Use Now: None Appearance: Lying in bed, A+O x3, cooperative with exam. Ears/Nose/Mouth/Throat: NL Teeth, Lips, Gums, Mucous Membranes Moist Neck: NL Appearance and Movements; NL JVP Respiratory: Symmetrical Chest Expansion and Respiratory Effort, Clear to Auscultation Cardiovascular: NL Sounds; No Murmurs; No JVD, No Edema, - - right radial access site is intact, no hematoma, strong bounding pulse, non tender to palpation. Extremities: No Edema Skin: No Rash or Ulcers Neurological: Alert and Oriented x 3 Lines/Tubes/Other Access: Clean, Dry and Intact Peripheral IV Laboratory Results: 01/06/19 13:26 01/08/19 05:30 INR (Anticoag Therapy) 1.06 (0.77-1.02) H 01/06/19 13:26 APTT 28.5 seconds (26.0-36.3) 01/07/19 05:14 Total Bilirubin 0.60 mg/dL (0.2-1.0) 01/07/19 05:14 AST 235 U/L (13-39) H 01/07/19 05:14 ALT 58 U/L (7-52) H 01/07/19 05:14 Alkaline Phosphatase 60 U/L (34-104) 01/07/19 05:14 CK-MB (CK-2) 56.4 ng/mL (0.6-6.3) H 01/07/19 22:21 B-Natriuretic Peptide 31 pg/mL (<=100) 01/06/19 13:26 Total Protein 6.0 g/dL (6.4-8.9) L 01/07/19 05:14 Albumin 3.9 g/dL (3.2-5.2) 01/07/19 05:14 Globulin 2.1 g/dL (2-4) 01/07/19 05:14 Albumin/Globulin Ratio 1.9 (1-3) 01/07/19 05:14 Triglycerides 160 mg/dL 01/06/19 13:26 Cholesterol 156 mg/dL 01/06/19 13:26 LDL Cholesterol 88 mg/dL 01/06/19 13:26 HDL Cholesterol 36.5 mg/dL 01/06/19 13:26 01/06/19 01/06/19 01/06/19 13:26 15:20 20:54 Troponin I 0.24 H* 14.39 H* > 79.00 H* 01/07/19 01/07/19 03:08 22:21 Troponin I > 74.00 H* 33.96 H* Laboratory Results - last 24 hr 01/07/19 01/07/19 01/08/19 05:14 22:21 05:30 Sodium 141 140 Potassium 3.6 3.6 Chloride 107 105 Carbon Dioxide 28 27 Anion Gap 6 8 BUN 20 18 Creatinine 0.84 0.82 Est GFR ( Amer) 110.6 113.7 Est GFR (Non-Af Amer) 91.4 94.0 BUN/Creatinine Ratio 23.8 H 22.0 H Glucose 112 H 114 H Calcium 8.9 9.1 Magnesium 1.9 Total Bilirubin 0.60 AST 235 H ALT 58 H Alkaline Phosphatase 60 Total Creatine Kinase 583 H CK-MB (CK-2) 56.4 H Troponin I 33.96 H* Total Protein 6.0 L Albumin 3.9 Globulin 2.1 Albumin/Globulin Ratio 1.9 Diagnostic Imaging: Echo 01/07/2019; LVEF 50-55%, mild LVH, + basal inferolateral, basal inferior, mid inferolateral, mid inferior, and apical inferior wall hypokinesis. Trace AI. [facility] 01/06/2019; Please refer to dictated report in EHR. Patient did undergo successful JHONNY/RCA. EKG Data: EKG 01/08/2019; Sinus bradycardia rate 62 with first degree AVB and inferiror Q waves. Telemetry reviewed. Sinus bradycardia rate 50-60's with occasional ventricular ectopy and NSVT. 6 beat count slow ( monomorphic) at 0152 while asleep Assessment/Plan #1 Inferior STEMI resulted in JHONNY (synergy) to RCA 01/06/2019. There is residual disease please refer to [facility] report. Troponin peaked at >79 on 01/06/2019. LVEF 50 -55%. No recurrent symptoms since PCI. Denies chest pain, sob, arnold, palpitations. Will continue ASA 81/day, Brilinta 90mg PO BID, Lopressor 50mg BID and Lipitor 80QHS. He will need uninterrupted DAPT for 12 months given presentation was STEMI. #2 NSVT with ventricular ectopy. VPCs have reduced however at 0152 there was a 6 beat count of slow monomorphic VT, patient not symptomatic. Tolerating higher dose of Bblocker therapy. K+ to be replaced. #3 h/o HTN; BP stable on current regimen. Will continue Lisinopril 5mg/day, Lopressor 50mg Po BID. #4 Hypokalemia; will increase daily dose to 40MEQ. repeat BMP in the morning. #5 Mild Transaminitis; likely due to above #1, recommend repeat FLP and LFT in 6 weeks given initiation of high intensity statin therapy. #6 Disposition pending course, patient is a full code. Plan is tenative discharge tomorrow. I spoke with his primary care provider and arranged for f/u with Dr. Miranda on 01/11/2019 at 5:15pm. Patient is aware. I asked staff to get LHC and echo images on disk given [place]. I would like for him to go home with medical records upon discharge so his PCP has information readily available when he sees him Friday. this patient would benefit from cardiac rehab and further evaluation of residual disease in outpatient setting. D/W Dr. Castillo who agrees with plan of care. Attending: Juan Diego Castillo <Juan Diego Castillo - Last Filed: 01/08/19 19:27> Medications Active Medications: Acetaminophen (Tylenol Tab*) 650 mg PO Q4H PRN PRN Reason: HEADACHE/PAIN Ascorbic Acid (Vitamin C Tab*) 1,000 mg PO DAILY [facility] Last Admin: 01/08/19 08:18 Dose: 1,000 mg Aspirin (Aspirin 81 Mg Chew Tab*) 81 mg PO DAILY [facility] Last Admin: 01/08/19 08:17 Dose: 81 mg Fenofibrate (Tricor) 54 mg PO DAILY [facility] Last Admin: 01/08/19 11:09 Dose: 54 mg Lisinopril (Prinivil Tab*) 5 mg PO DAILY [facility] Last Admin: 01/08/19 08:17 Dose: 5 mg Metoprolol Tartrate (Lopressor Tab*) 50 mg PO Q12HR [facility] Last Admin: 01/08/19 08:17 Dose: 50 mg Nicotine (Nicotine Patch 21 Mg/24 Hr*) 1 patch TRANSDERM DAILY [facility] Last Admin: 01/08/19 08:18 Dose: 1 patch Nitroglycerin (Nitroglycerin Tab 0.4 Mg*) 0.4 mg SL Q5M PRN PRN Reason: ANGINA Pharmacy Profile Note (Nicotine Patch Removal Note*) 1 note PATCH OFF 2100 [facility] Last Admin: 01/07/19 20:28 Dose: 1 note Potassium Chloride (Klor Con Er Tab*) 40 meq PO DAILY [facility] Last Admin: 01/08/19 11:09 Dose: 40 meq Ticagrelor (Brilinta*) 90 mg PO BID [facility] Last Admin: 01/08/19 08:17 Dose: 90 mg Objective Vital Signs: Temp Pulse Resp BP Pulse Ox 97.9 F 65 20 103/53 93 01/08/19 15:22 01/08/19 15:22 01/08/19 15:22 01/08/19 15:22 01/08/19 15:22 Laboratory Results: 01/06/19 13:26 01/08/19 05:30 INR (Anticoag Therapy) 1.06 (0.77-1.02) H 01/06/19 13:26 APTT 28.5 seconds (26.0-36.3) 01/07/19 05:14 Total Bilirubin 0.60 mg/dL (0.2-1.0) 01/07/19 05:14 AST 235 U/L (13-39) H 01/07/19 05:14 ALT 58 U/L (7-52) H 01/07/19 05:14 Alkaline Phosphatase 60 U/L (34-104) 01/07/19 05:14 CK-MB (CK-2) 56.4 ng/mL (0.6-6.3) H 01/07/19 22:21 B-Natriuretic Peptide 31 pg/mL (<=100) 01/06/19 13:26 Total Protein 6.0 g/dL (6.4-8.9) L 01/07/19 05:14 Albumin 3.9 g/dL (3.2-5.2) 01/07/19 05:14 Globulin 2.1 g/dL (2-4) 01/07/19 05:14 Albumin/Globulin Ratio 1.9 (1-3) 01/07/19 05:14 Triglycerides 160 mg/dL 01/06/19 13:26 Cholesterol 156 mg/dL 01/06/19 13:26 LDL Cholesterol 88 mg/dL 01/06/19 13:26 HDL Cholesterol 36.5 mg/dL 01/06/19 13:26 01/06/19 01/06/19 01/06/19 13:26 15:20 20:54 Troponin I 0.24 H* 14.39 H* > 79.00 H* 01/07/19 01/07/19 03:08 22:21 Troponin I > 74.00 H* 33.96 H* Assessment/Plan Discussed smoking cessation. He's determined to quit. Ambulating. So far no further NSVT
[2019-01-08] MEDS: Potassium Chlor TAB* 20 MEQ TAB.ER PO SCH (11:09)
[2019-01-08] MEDS: Nicotine Patch Removal NOTE PATCH OFF SCH (21:00)
[2019-01-09 07:23] VITALS: BP 122/72
[2019-01-09] MEDS: Potassium Chlor TAB* 20 MEQ TAB.ER PO SCH (08:29)
[2019-01-09] MEDS: Ticagrelor* 90 MG TAB PO SCH (08:29)
[2019-01-09] MEDS: Aspirin 81 mg CHEW TAB* 81 MG TAB.CHEW PO SCH (08:29)
[2019-01-09] MEDS: Metoprolol Tartrate TAB* 50 mg PO SCH (08:30)
[2019-01-09] MEDS: Lisinopril TAB* 5 MG PO SCH (08:30)
[2019-01-09] MEDS: Ascorbic Acid TAB* 500 MG PO SCH (08:30)
[2019-01-09] MEDS: Nicotine PATCH 21 MG/24 HR* PATCH TRANSDERM SCH (08:31)
--- NOTE | 2019-01-10 06:13 | DS ---
CC: Mary Ashford PA-C at [facility], [address], [address], [place], [place] [address] DISCHARGE SUMMARY: DATE OF ADMISSION: 01/06/19 DATE OF DISCHARGE: 01/09/19 PRIMARY CARE PHYSICIAN: Mary Ashford PA-C at [facility], [address], [address], [place] [address]. DISCHARGE DIAGNOSES: 1. Acute inferior wall ST elevation infarct. 2. Tobacco use. 3. Prediabetes. 4. Chronic musculoskeletal pain. 5. Hyperlipidemia. 6. Obstructive sleep apnea, untreated by choice. 7. Chronic hypomagnesemia and hypokalemia, on hydrochlorothiazide. 8. Obesity. 9. Hard of hearing. PROCEDURES: Cardiac cath, right radial artery access, stent placement RCA, 3.0 x 20 mm Synergy drug- eluting stent postdilated with 3.5 x 20 NC. CONDITION ON DISCHARGE: Stable. ACTIVITY: To avoid strenuous exertion for 1 week, to walk for 30 minutes daily. Follow up with his [facility] physician as scheduled on Friday, day after tomorrow. DIET: Low-fat low-cholesterol without refined carbohydrates. WOUND CARE: No heavy lifting, right upper extremity for 3 days, do not immerse the right wrist for 3 days. DISCHARGE MEDICATIONS: 1. Nitroglycerin 0.4 sublingual p.r.n. 2. Nicotine patch 21 mg q.24 hours. 3. Potassium chloride 10 mEq b.i.d. 4. Brilinta 90 mg b.i.d. 5. Aspirin 81 mg daily. 6. Fenofibrate, continue with 54 mg daily. 7. Lisinopril 5 mg daily. 8. Lopressor 50 mg b.i.d. Discharge meds were electronically transmitted to pharmacy here locally, he will ask his primary for a prescription for Brilinta, was given a 8-day supply of samples of Brilinta 90 mg b.i.d. HISTORY: See H and P. DIAGNOSTIC STUDIES/LAB REVIEW: His BMP postprocedure remained stable on the a creatinine of 0.8 2, potassium of 3.6 after supplementation. Random blood sugar was mildly elevated at 112 and 114. H is hemoglobin A1c on 01/06/19 was 5.7 consistent with prediabetes. His troponin peaked in excess of 79 with MB peak in excess of 304 on the 01/06/19 at 2054 hours consistent with early washout. EKG: Post procedural EKG today reveals normal sinus rhythm 61, with inferior Q- waves, and early rig ht precordial transition consistent with an inferoposterior infarct. There are no minor nonspecific repolarization changes in 1, aVL, V4 through V6, which are stable. HOSPITAL COURSE: He presented with acute inferior wall ST elevation infarct, had catheterization [facility] ch demonstrated a RCA with mid occlusion as well as intermediate stenosis disease of the proxi mal LAD, severe stenosis of a very small diagonal branch with subsequent occlusion, luminal irregular ity in the circumflex, 80% stenosis at the origin of the RPDA, however, very short, and posterolatera l with 60% stenosis. The EF showed mild distal inferior wall hypokinesis with LVEF of 55%. He under went successful revascularization with drug-eluting stent placement and postdilatation with 3.5 mm ba lloon. He had no recurrence of chest pain, he did have short burst of nonsustained VT in the first 4 8 hours, but none in the last 24 hours. He has been ambulatory, there were no complications at the [facility] radial site. Today he is ambulatory, feels well, is committed to stopping smoking, is toleratin g his medical regimen. He will be discharged, he has followup for day after tomorrow with his primar y care back home. He will then discuss obtaining a referral to a local marketing/sales person. He needs [facility] noninvasive evaluation of his intermediate stenosis in the LAD and more distal RCA. He received e xtensive smoking cessation counseling, is now committed to trying to quit. We have recommended to pete reilly lifelong aspirin 81 mg daily and a minimum of 1 year of dual antiplatelet therapy. His admission l ipids included cholesterol of 156, triglycerides 160, LDL 88 with direct LDL of 105 and HDL of 36.5 o n his fenofibrate and Zocor 20. I switched him from Zocor to Crestor 20 mg daily in the hope that he will tolerate it. He has a history of intolerance of Lipitor with muscle cramping. We also stopped his hydrochlorothiazide in the hope that his hypomagnesemia and hypokalemia would resolve, potassium improved with supplementation. He was also advised regarding his prediabetic state, was recommended a low purified carb diet, aerobic exercise, and weight loss. [id number]/[facility] #: [id number]
== END 2019-01-09 10:56 | disposition home or self-care (01) | DRG 174 ==
LOC: ED 13:18 → CHICATH 13:26 → ICU 15:11 → MEDTELE 01-07 16:24
PROVIDERS: ADMIT Internal Medicine Cardiovascular Disease; ATTEND Internal Medicine Cardiovascular Disease
PROC: B2151ZZ Fluoroscopy of Left Heart using Low Osmolar Contrast (ICD-10-PCS; 2019-01-06)
PROC: 027034Z Dilation of Coronary Artery, One Artery with Drug-eluting Intraluminal Device, Percutaneous Approach (ICD-10-PCS; 2019-01-06)
PROC: B2111ZZ Fluoroscopy of Multiple Coronary Arteries using Low Osmolar Contrast (ICD-10-PCS; 2019-01-06)
PROC: 4A023N7 Measurement of Cardiac Sampling and Pressure, Left Heart, Percutaneous Approach (ICD-10-PCS; principal; 2019-01-06 13:30)
DX: I21.19 ST elevation (STEMI) myocardial infarction involving other coronary artery of inferior wall (principal); I47.1 Supraventricular tachycardia; I10 Essential (primary) hypertension; E78.5 Hyperlipidemia, unspecified; R73.03 Prediabetes; I25.10 Atherosclerotic heart disease of native coronary artery without angina pectoris; G47.33 Obstructive sleep apnea (adult) (pediatric); E83.42 Hypomagnesemia; K21.9 Gastro-esophageal reflux disease without esophagitis; F17.210 Nicotine dependence, cigarettes, uncomplicated; E78.00 Pure hypercholesterolemia, unspecified; I44.0 Atrioventricular block, first degree; R07.89 Other chest pain; H91.90 Unspecified hearing loss, unspecified ear; E66.9 Obesity, unspecified; I49.3 Ventricular premature depolarization; E87.6 Hypokalemia; Z91.048 Other nonmedicinal substance allergy status; Z79.82 Long term (current) use of aspirin; Z79.02 Long term (current) use of antithrombotics/antiplatelets; Z68.27 Body mass index [BMI] 27.0-27.9, adult
CPT/HCPCS: 36415; 80048; 80053; 80061; 82550; 82553; 83036; 83605; 83721; 83735; 83880; 84484; 85025; 85347; 85610; 85730; 87641; 93005; 93306; 99156; 99157; 99285; A9270-GY; C1725; C1769; C1876; C1887; C9606-RC; J0461; J2250; J3010; J3480